=== PATIENT | female | born 2000 | race Caucasian/White ===

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

== ENCOUNTER 2019-10-16 06:34 | Emergency (ER) | payer OTHER ==
[~2019-10-16] VITALS: Ht 170.2 cm; Wt 71.7 kg
--- OUTSIDE RECORDS SUMMARY | 2019-10-16 06:36 | XMS ---
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 ESantos VISIT COUNT (12 MO.) [address] [place] [address] TOTAL 2 NOTE: Visits indicate total known visits. ED/UCC VISIT TRACKING (12 MO.) 10/16/2019 06:[address] [facility] [place] TYPE: Emergency COMPLAINT: - VAGINAL PAIN 09/18/2019 17:21 [facility] [place] TYPE: Emergency DIAGNOSES: - Cutaneous abscess of trunk, unspecified - Abscess - Multiple Medical problems INPATIENT VISIT TRACKING (12 MO.) No inpatient visits to display in this time frame [email or web address]
[2019-10-16] MEDS ORDERED: MACROBID 100 M100 MG PO (06:44)
[2019-10-16] MEDS ORDERED: PHENAZOPYRIDIN200 MG PO (06:45)
[2019-10-16] MEDS ORDERED: FLUOXETINE HCL40 MG PO (06:46)
[2019-10-16] MEDS ORDERED: DIFLUCAN200 MG PO (07:36)
[2019-10-16] MEDS ORDERED: 3-DAY VAGINAL C21 GM VAGINAL (07:36)
[2019-10-17] MEDS ORDERED: NORCO 7.5-3251 EACH PO (09:38)
== END 2019-10-16 07:48 | disposition home or self-care (01) ==
LOC: ED 06:34
DX: B37.3 Candidiasis of vulva and vagina (principal); E10.9 Type 1 diabetes mellitus without complications; Z79.899 Other long term (current) drug therapy
CPT/HCPCS: 99283

== ENCOUNTER 2019-10-17 08:41 | Emergency (ER) | payer OTHER ==
[~2019-10-17] VITALS: Ht 170.2 cm; Wt 71.7 kg
[~2019-10-17 08:41] MED LIST changes: +3-DAY VAGINAL C21 GM VAGINAL; +DIFLUCAN200 MG PO; +FLUOXETINE HCL40 MG PO; +MACROBID 100 M100 MG PO; +PHENAZOPYRIDIN200 MG PO
--- OUTSIDE RECORDS SUMMARY | 2019-10-17 08:44 | XMS ---
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 Michele VISIT COUNT (12 MO.) [address] [place] [address] TOTAL 3 NOTE: Visits indicate total known visits. ED/UCC VISIT TRACKING (12 MO.) 10/17/2019 08:42 [facility] [place] TYPE: Emergency COMPLAINT: - VAGINAL PROBLEM 10/16/2019 06:35 [facility] [place] TYPE: Emergency COMPLAINT: - VAGINAL PAIN 09/18/2019 17:[facility] [place] TYPE: Emergency DIAGNOSES: - Cutaneous abscess of trunk, unspecified - Abscess - Multiple Medical problems INPATIENT VISIT TRACKING (12 MO.) No inpatient visits to display in this time frame [email or web address]
[2019-10-17] MEDS ORDERED: NORCO 7.5-3251 EACH PO (09:38)
== END 2019-10-17 10:15 | disposition home or self-care (01) ==
LOC: ED 08:41
DX: B37.3 Candidiasis of vulva and vagina (principal); E11.10 Type 2 diabetes mellitus with ketoacidosis without coma; Z79.899 Other long term (current) drug therapy
CPT/HCPCS: 99283; A9270